=== PATIENT | male | born 1965 | race Caucasian/White ===

== ENCOUNTER 2018-03-03 08:56 | Emergency (ER) | payer OTHER ==
[~2018-03-03] VITALS: Ht 193 cm; Wt 160.2 kg
[2018-03-03 09:04] VITALS: Ht 193 cm; Wt 160.2 kg
[2018-03-03 09:47] LABS: BASOPHIL % 0.2 % (0-2); PLATELET COUNT 246 x10^3mcL (130-400); RED CELL DISTRIBUTION WIDTH 13.3 % (11.5-14.5)
[2018-03-03 10:00] LABS: CALCIUM 8.5 mg/dL (8.5-10.1); CARBON DIOXIDE 29.9 mmol/L (21-32); CHLORIDE SERUM 102 mmol/L (98-107); CREATININE SERUM 0.9 mg/dL (0.7-1.3); GFR1 > 60 mL/min; GLUCOSE SERUM 97 mg/dL (74-106); POTASSIUM SERUM 4.1 mmol/L (3.5-5.1); SODIUM SERUM 138 mmol/L (136-145)
[2018-03-03 10:12] LABS: ALBUMIN 3.7 g/dL (3.4-5.0); ALKALINE PHOSPHATASE 103 U/L (46-116); ALT/SGPT 36 U/L (16-63); AST/SGOT 18 U/L (15-37); BILIRUBIN TOTAL 0.4 mg/dL (0.20-1.00); CHOLESTEROL 165 mg/dL (<200); CHOLESTEROL/HDL RATIO 3.5; HDL CHOLESTEROL 47 mg/dL (40-60); TOTAL PROTEIN, SERUM 7.2 g/dL (6.4-8.2)
[2018-03-03 10:13] LABS: TRIGLYCERIDES 220 mg/dL (<150)
[2018-03-03 13:21] VITALS: BP 161/91
== END 2018-03-03 13:21 | disposition home or self-care (01) ==
LOC: ED 08:56
PROVIDERS: Emergency Medicine
DX: I10 Essential (primary) hypertension (principal); R51 Headache; E78.00 Pure hypercholesterolemia, unspecified; E78.1 Pure hyperglyceridemia
CPT/HCPCS: 36415; Q0092

== ENCOUNTER 2019-08-16 04:18 | Emergency (ER) | payer OTHER ==
[~2019-08-16] VITALS: Ht 193 cm; Wt 154.7 kg
[2019-08-16 04:20] VITALS: Ht 193 cm; Wt 154.7 kg
[2019-08-16 04:55] LABS: CALCIUM 9.8 mg/dL (8.5-10.1); CARBON DIOXIDE 27.2 mmol/L (21-32); CHLORIDE SERUM 100 mmol/L (98-107); CREATININE SERUM 1.3 mg/dL (0.7-1.3); GFR1 > 60 mL/min; GLUCOSE SERUM 170 mg/dL (74-106); SODIUM SERUM 140 mmol/L (136-145)
[2019-08-16 05:00] LABS: ALBUMIN 4.2 g/dL (3.4-5.0); ALKALINE PHOSPHATASE 106 U/L (46-116); ALT/SGPT 60 U/L (16-63); AST/SGOT 28 U/L (15-37); BILIRUBIN TOTAL 0.69 mg/dL (0.20-1.00); LIPASE 110 IU/L (73-393); TOTAL PROTEIN, SERUM 7.8 g/dL (6.4-8.2)
[2019-08-16 05:14] VITALS: BP 146/86
[2019-08-16 05:18] LABS: BASOPHIL % 0.2 % (0-2); PLATELET COUNT 287 x10^3mcL (130-400); RED CELL DISTRIBUTION WIDTH 13.4 % (11.5-14.5)
== END 2019-08-16 07:24 | disposition home or self-care (01) ==
LOC: ED 04:18
PROVIDERS: Emergency Medicine
DX: N20.1 Calculus of ureter (principal); I10 Essential (primary) hypertension; E11.9 Type 2 diabetes mellitus without complications; E78.00 Pure hypercholesterolemia, unspecified
CPT/HCPCS: J1885; J2270; J2405; J7030